=== PATIENT | male | born 1965 | race Caucasian/White ===

== ENCOUNTER 2018-04-12 11:54 | Day surgery (SDC) | payer BC, MEDICAID ==
[2018-04-12] MEDS ORDERED: LIDOCAINE 2% MDV (20MG/ML) 20ML VIAL IV ONE (11:55)
[2018-04-12] MEDS ORDERED: PROPOFOL 10 MG/ML VIAL IV ONE (11:55)
--- NOTE | 2018-04-13 09:30 | Operative Note ---
DATE OF SURGERY: 04/12/2018 OPERATION: COLONOSCOPY to the cecum with cold biopsy forceps polypectomy x1. INDICATION: High-risk colorectal cancer screening. The patient's father had colon cancer. This is his first colonoscopy. ANESTHESIA: Intravenous sedation was administered by the department of anesthesiology and included Diprivan titrated to effect. PROCEDURE: Following informed consent from this alert individual including a discussion of the risks and benefits of the procedure and an opportunity for the patient to ask questions, the patient was in the left lateral decubitus position. A digital rectal examination was performed. No abnormalities were noted. Following this, the Olympus [id number] video colonoscope was inserted into the rectum without resistance. The rectal mucosa had a normal appearance with normal folds and distensibility. The colonoscope was advanced into the sigmoid colon where scattered diverticula were noted. It was further advanced up through the remainder of the bowel to the level of the cecum without much difficulty. Throughout the remainder of the bowel, the mucosa appeared normal, the folds were normal, and the bowel was fairly well distensible. The cecum was defined by noting the appendiceal orifice and ileocecal valve. The terminal ileum was cannulated and found to be normal. From the base of the cecum, the colonoscope was then slowly withdrawn. The colon preparation was good. In the sigmoid colon, there was a diminutive polyp noted which was removed with biopsy forceps. Sigmoid diverticulosis was again noted. No other changes were appreciated. Retroflexion in the rectum was endoscopically normal. The instrument was straightened and withdrawn. The patient tolerated the procedure well and was returned to the recovery area in stable condition. IMPRESSION: 1. Diminutive 3 mm sigmoid polyp removed with biopsy forceps. 2. Sigmoid diverticulosis. RECOMMENDATIONS: Because of the patient's family history of colon cancer, I did recommend a recheck colonoscopy in 5 years' time or sooner should problems arise. Followup will otherwise be with Dr. Amador. As always, thank you for allowing me to participate in the care of your patient. CC: Carlito PULIDO
== END 2018-04-12 14:00 | disposition home or self-care (01) ==
LOC: HOP 11:54
PROVIDERS: ATTEND Internal Medicine Gastroenterology
DX: Z12.11 Encounter for screening for malignant neoplasm of colon (principal); Z80.0 Family history of malignant neoplasm of digestive organs; D12.5 Benign neoplasm of sigmoid colon; K57.30 Diverticulosis of large intestine without perforation or abscess without bleeding